=== PATIENT | male | born 1980 | race Caucasian/White ===

== ENCOUNTER 2018-03-18 03:04 | Emergency (ER) | payer SELFPAY ==
[~2018-03-18] VITALS: Ht 167.6 cm; Wt 70.0 kg
[2018-03-18 03:08] VITALS: BP 146/85
== END 2018-03-18 03:38 ==
LOC: ER 03:05
DX: Z04.1 Encounter for examination and observation following transport accident (principal); V89.2XXA Person injured in unspecified motor-vehicle accident, traffic, initial encounter; Y93.89 Activity, other specified; Y92.89 Other specified places as the place of occurrence of the external cause; Y99.8 Other external cause status
CPT/HCPCS: 99283

== ENCOUNTER 2021-10-25 09:00 | Emergency (ER) | payer BC ==
[~2021-10-25] VITALS: Ht 167.6 cm; Wt 65.9 kg
[2021-10-25 09:01] VITALS: BP 124/79
[2021-10-25] MEDS ORDERED: ibuprofen 200mg tablet PO ONE (09:35)
== END 2021-10-25 10:07 | disposition home or self-care (01) ==
LOC: ER 09:01
DX: S46.212A Strain of muscle, fascia and tendon of other parts of biceps, left arm, initial encounter (principal); X58.XXXA Exposure to other specified factors, initial encounter; Y93.89 Activity, other specified; Y92.89 Other specified places as the place of occurrence of the external cause; Y99.8 Other external cause status
CPT/HCPCS: 73030; 99283; A4565